=== PATIENT | female | born 1950 | race Caucasian/White ===

== ENCOUNTER 2016-04-10 15:39 | Emergency (ER) | payer OTHER ==
--- NOTE | 2016-04-10 18:29 | RAD ---
INDICATION: Heel pain. No injury. COMPARISON: None TECHNIQUE: AP, lateral, and oblique views were obtained. FINDINGS: Is no acute bony change. There is osteopenia. There are hammertoe deformities. There are prominent heel spurs. There is diffuse soft tissue swelling.. IMPRESSION: PROMINENT HEEL SPURS. DIFFUSE SOFT TISSUE SWELLING.
--- NOTE | 2016-05-25 10:13 | UC ---
Prosper Beckett Matthew, scribed for Marla Balderas MD on 04/10/16 at 1734 . Lower Extremity/Ankle HPI - HPI Summary HPI Summary: A 65 y/o female presents to [facility] with right heel pain since a couple of weeks ago. No open sore is noted. Associated symptoms include pain with touch and restless legs at night. The patient has a Hx of diabetes. - History of Current Complaint Chief Complaint: UCLowerExtremity Stated Complaint: WOUND ON FOOT Time Seen by Provider: 04/10/16 17:19 Hx Obtained From: Patient ?: No Onset/Duration: Lasting Weeks, Still Present Severity Initially: Moderate Severity Currently: Moderate Pain Intensity: 1 Pain Scale Used: 0-10 Numeric Aggravating Factor(s): Standing, Ambulation Able to Bear Weight: Yes - Allergies/Home Medications Allergies/Adverse Reactions: Allergies Allergy/AdvReac Type Severity Reaction Status Date / Time No Known Allergies Allergy Verified 02/06/12 13:18 Home Medications: Home Medications Insulin Glargine [Lantus] 10 unit SC DAILY 04/10/16 [History Confirmed 05/19/16] buPROPion TAB* [Wellbutrin TAB*] 75 mg PO DAILY 04/10/16 [History Confirmed ] traZODone TAB* [Desyrel TAB*] 100 mg PO BEDTIME PRN 04/10/16 [History Confirmed 05/19/16] PMH/Surg Hx/FS Hx/Imm Hx Endocrine History Of: Reports: Diabetes Cardiovascular History Of: Reports: Hypertension Cancer History Of: Denies: Breast Cancer - Surgical History Surgical History: Yes Surgery Procedure, Year, and Place: hysterectomy - Family History Family History: No FHx of Breast CA - Social History Alcohol Use: Rare Substance Use Type: None Smoking Status (MU): Former Smoker Review of Systems Constitutional: Negative Skin: Negative Eyes: Negative ENT: Negative Respiratory: Negative Cardiovascular: Negative Gastrointestinal: Negative Genitourinary: Negative Motor: Negative Neurovascular: Negative Musculoskeletal: Myalgia - RT heel pain, Other: - restless legs at night Neurological: Negative Psychological: Negative All Other Systems Reviewed And Are Negative: Yes Physical Exam Triage Information Reviewed: Yes Appearance: Obese Vital Signs: Initial Vital Signs Temp 98.2 F 04/10/16 16:01 Pulse 63 04/10/16 16:01 Resp 18 04/10/16 16:01 Pulse Ox 98 04/10/16 16:01 Vital Signs Reviewed: Yes Eye Exam: Normal ENT Exam: Normal Neck exam: Normal Neck: Positive: No Lymphadenopathy Respiratory: Positive: Chest non-tender, Lungs clear, Normal breath sounds, No respiratory distress, No accessory muscle use Cardiovascular: Positive: RRR, No Murmur, Pulses Normal - Sitting up, Brisk Capillary Refill Abdominal Exam: Normal Musculoskeletal Exam: Other - R post heel + tender post heel, extending superiorly to distal achilles area. No sores noted to either R or L foot. +++ pitting edema BLE. No jeremi alm's or appreciable venous cord (limited 2/2 edema) + BLE venous insufficiency changes, flaky skin, hemosiderosis. Edema extends to BL feet. CR < 2 sec x 10 toes. + onchomycosis. + sensation to LT "tickle" BLE base of feet. Musculoskeletal: Positive: Edema @ Neurological Exam: Normal - non-focal, grossly intact Psychological Exam: Normal Skin Exam: Other - see above ext's Diagnostics - Radiology RT Foot XR Xray Interpretation: Positive (See Comments) - IMPRESSION: PROMINENT HEEL SPURS. DIFFUSE SOFT TISSUE SWELLING. Radiology Interpretation Completed By: Radiologist Lower Extremity Course/Dx - Course Course Of Treatment: Ms. Howell has upcoming appt's with both Dr. Pritchett ( patent solicitor) and Ms. Williams Ware NP (Dr. KYM Wade) approx 24 April. She reports that insurance has not covered compression for legs. Wearing diabetic inserts in both sneakers, but sneakers themselves do not seem to fit well (loose). Reviewed the importance of f/u with Professor Of Geology bill, as she will benefit from improved footwear. Notes some RLS at night, both legs, over the last several weeks. Suspect this is in part related to BLE edema, progressively worse. Very important that she f/u with pcp, ideally this week. No current sob / cp / palpitations. No GI sx. She is aware to go to to the ED for any worse or new symptoms. Advised to elevate legs as much as possible. She is using a walker. Nevertheless, minimal weight bear until ok by patent solicitor. Questions answered to the best of my ability. BS here 100mg / dl. - Differential Dx/Diagnosis Provider Diagnoses: heel spur Discharge - Discharge Plan Condition: Stable Disposition: HOME Patient Education Materials: Lymphedema (ED), Heel Spur (ED), Venous Insufficiency (GEN) Referrals: Williams Ware NP [Primary Care Provider] - Additional Instructions: You have a heel spur on your Right foot. It is very important that you follow up with your Professor Of Geology, Dr. Quintero, as soon as possible. Call for appointment next week. Check with your patent solicitor about improved footwear. Follow up with your primary care provider, Dr. KYM Wade (or Ms. Ware), next week if possible. Consider referral to [facility]. ELEVATE your legs as much as possible. You will benefit from compression devices for your legs, check with your doctor. Moisturize your legs. Go to the ED for any worse or new problems in the meantime. Keep a close eye on your blood glusose levels. The documentation as recorded by the Prosper gross Matthew accurately reflects the service I personally performed and the decisions made by me, Marla Balderas MD.
== END 2016-04-10 19:19 | disposition home or self-care (01) ==
LOC: UCEAST 15:39
DX: M77.31 Calcaneal spur, right foot (principal); E11.9 Type 2 diabetes mellitus without complications; Z79.4 Long term (current) use of insulin; I10 Essential (primary) hypertension; Z87.891 Personal history of nicotine dependence
CPT/HCPCS: 99211; G0463

== ENCOUNTER 2017-03-02 10:39 | Inpatient (IN) | payer MEDICAID, MEDICARE ==
[2017-03-02] MEDS ORDERED: Furosemide IV* 10 MG/ML VIAL (40 MG) IV SLOW PU ONE (11:15)
[2017-03-02] MEDS ORDERED: Nitroglycerin TAB 0.4 MG* 0.4 MG TAB ONE (11:51)
[2017-03-02 11:58] LABS: ABS Basophils 0.1 10^3/ul (0-0.2); ABS Eosinophils 0.1 10^3/ul (0-0.6); ABS Lymphocytes 1.2 10^3/ul (1.0-4.8); ABS Monocytes 0.6 10^3/ul (0-0.8); ABS Neutrophils 7.9 10^3/ul (1.5-7.7); ABS Nucleated RBC 0 10^3/ul; Eosinophil % 0.5 % (0-6); Hematocrit 28 % (35-47); Mean Corpuscular HGB Conc 33 g/dl (31-36); Mean Corpuscular Hemoglobin 27 pg (27-31); Mean Corpuscular Volume 81 fL (80-97); Mean Platelet Volume 8 um3 (7.4-10.4); Nucleated Red Blood Cells % 0; Platelet Count 200 10^3/ul (150-450); Red Blood Count 3.38 10^6/ul (4.0-5.4); Red Cell Distribution Width 17 % (10.5-15); White Blood Count 9.8 10^3/ul (3.5-10.8)
[2017-03-02] MEDS ORDERED: Nitroglycerin TAB 0.4 MG* 0.4 MG TAB SL ONE (12:00)
[2017-03-02] MEDS ORDERED: Nitroglycerin 2% OINT* 1 GM PAK TOPICAL ONE (12:01)
[2017-03-02 12:05] LABS: INR 1.16 (0.77-1.02)
[2017-03-02 12:14] LABS: EGFR Non-African American 78.8 (>60)
--- NOTE | 2017-03-02 12:14 | RAD ---
Indication: Shortness of breath. Comparison: August 10, 2013 CT abdomen. July 29, 2006 chest radiograph. Technique: Upright AP 1151 hours Report: Large body habitus limits image quality. Mild elevation of the RIGHT hemidiaphragm without significant change. Mild prominence of interstitial markings. Grossly clear pleural spaces. Cardiomegaly. Prominent ill-defined central pulmonary vasculature with cephalization. Prominent superior RIGHT mediastinal margin likely representing venous congestion. IMPRESSION: The constellation of findings is most consistent with pulmonary vascular congestion and interstitial edema.
--- NOTE | 2017-03-02 13:32 | ED ---
Gunner Beckett Angela, scribed for Omar Olguin MD on 03/02/17 at 1054 . Shortness of Breath - HPI Summary HPI Summary: This pt is a 66 y/o female, accompanied by her friend, presenting to [facility] c/o SOB x3 day. Friend states she was running errands with pt when she noticed pt was short of breath and brought her to the ED. Pt reports bilateral LE swelling , headache. Pt notes her SOB is alleviated with sitting up and exacerbated with lying down. Denies fever, chills, cough. Pt reports she has been eating more solid intake than usual. PMHx: IDDM. No known pulmonary issues. Pt has not taken her medications today. Pt is currently on diuretics. Pt is on CPAP at home. Her BP usually runs in the 130's. EF is 78% during stress and 69% during rest as of 05/21/16. - History of Current Complaint Chief Complaint: EDShortnessOfBreath Hx Obtained From: Patient Onset/Duration: Lasting Days, Still Present Current Severity: Moderate Dyspnea At: Rest Aggrevating Factors: Recumbent Position Alleviating Factors: Other - sitting up Associated Signs & Symptoms: Edema - Allergy/Home Medications Allergies/Adverse Reactions: Allergies Allergy/AdvReac Type Severity Reaction Status Date / Time No Known Allergies Allergy Verified 02/06/12 13:18 PMH/Surg Hx/FS Hx/Imm Hx Endocrine/Hematology History: Reports: Hx Diabetes Cardiovascular History: Reports: Hx Angina, Hx Hypertension Denies: Hx Coronary Artery Disease, Hx Hypercholesterolemia, Hx Myocardial Infarction Musculoskeletal History: Denies: Hx Osteoporosis - Cancer History Hx Chemotherapy: No Hx Radiation Therapy: No - Surgical History Surgery Procedure, Year, and Place: hysterectomy Infectious Disease History: No Infectious Disease History: Denies: Traveled Outside the [place] in Last 30 Days - Family History Known Family History: Positive: Diabetes - grandparents, Other - Brother due to brain tumor. - Social History Alcohol Use: Rare Substance Use Type: Reports: None Smoking Status (MU): Former Smoker Review of Systems Negative: Fever, Chills Positive: Shortness Of Breath. Negative: Cough Positive: Edema - in LE Positive: Headache All Other Systems Reviewed And Are Negative: Yes Physical Exam - Summary Physical Exam Summary: Appearance: Morbidly obese. Tachypneic but able to speak in short sentences. Skin: Warm Eyes: Normal ENT: Normal. Normal mucous membranes. Neck: Supple, nontender Respiratory: Diminished breath sounds bilaterally. No crackles. Chest is normal. Cardiovascular: Normal sinus rhythm. Abdomen: Soft, nontender Bowel: Present Musculoskeletal: Strength/ROM Intact. Lower extremity severe edema with chronic skin changes. No tenderness to palpation. Neurological: Normal, A&Ox3. Answering questions appropriately. Psychiatric: Normal Triage Information Reviewed: Yes Vital Signs On Initial Exam: Initial Vitals Temp Pulse Resp BP Pulse Ox 98.7 F 81 28 190/78 77 03/02/17 10:41 03/02/17 10:41 03/02/17 10:41 03/02/17 10:41 03/02/17 10:41 Vital Signs Reviewed: Yes Diagnostics - Vital Signs Vital Signs Temp Pulse Resp BP Pulse Ox 03/02/17 10:41 98.7 F 81 28 190/78 77 - Laboratory Lab Results: Lab Results 03/02/17 03/02/17 03/02/17 Range/Units 11:48 11:48 11:48 WBC 9.8 (3.5-10.8) 10^3/ul RBC 3.38 L (4.0-5.4) 10^6/ul Hgb 9.0 L (12.0-16.0) g/dl Hct 28 L (35-47) % MCV 81 (80-97) fL MCH 27 (27-31) pg MCHC 33 (31-36) g/dl RDW 17 H (10.5-15) % Plt Count 200 (150-450) 10^3/ul MPV 8 (7.4-10.4) um3 Neut % (Auto) 80.3 (38-83) % Lymph % (Auto) 12.0 L (25-47) % Pleasants % (Auto) 6.6 (1-9) % Eos % (Auto) 0.5 (0-6) % Baso % (Auto) 0.6 (0-2) % Absolute Neuts (auto) 7.9 H (1.5-7.7) 10^3/ul Absolute Lymphs (auto) 1.2 (1.0-4.8) 10^3/ul Absolute Monos (auto) 0.6 (0-0.8) 10^3/ul Absolute Eos (auto) 0.1 (0-0.6) 10^3/ul Absolute Basos (auto) 0.1 (0-0.2) 10^3/ul Absolute Nucleated RBC 0 10^3/ul Nucleated RBC % 0 INR (Anticoag Therapy) (0.77-1.02) Sodium 132 L (133-145) mmol/L Potassium 3.6 (3.5-5.0) mmol/L Chloride 99 L (101-111) mmol/L Carbon Dioxide 25 (22-32) mmol/L Anion Gap 8 (2-11) mmol/L BUN 17 (6-24) mg/dL Creatinine 0.74 (0.51-0.95) mg/dL Est GFR ( Amer) 101.3 (>60) Est GFR (Non-Af Amer) 78.8 (>60) BUN/Creatinine Ratio 23.0 H (8-20) Glucose 133 H (70-100) mg/dL Lactic Acid (0.5-2.0) mmol/L Calcium 8.9 (8.6-10.3) mg/dL Total Bilirubin 0.80 (0.2-1.0) mg/dL AST 17 (13-39) U/L ALT 21 (7-52) U/L Alkaline Phosphatase 68 (34-104) U/L Troponin I 0.01 (<0.04) ng/mL B-Natriuretic Peptide 324 H ( - 100) pg/mL Total Protein 8.5 (6.4-8.9) g/dL Albumin 3.3 (3.2-5.2) g/dL Globulin 5.2 H (2-4) g/dL Albumin/Globulin Ratio 0.6 L (1-3) 03/02/17 03/02/17 Range/Units 11:48 11:48 WBC (3.5-10.8) 10^3/ul RBC (4.0-5.4) 10^6/ul Hgb (12.0-16.0) g/dl Hct (35-47) % MCV (80-97) fL MCH (27-31) pg MCHC (31-36) g/dl RDW (10.5-15) % Plt Count (150-450) 10^3/ul MPV (7.4-10.4) um3 Neut % (Auto) (38-83) % Lymph % (Auto) (25-47) % Pleasants % (Auto) (1-9) % Eos % (Auto) (0-6) % Baso % (Auto) (0-2) % Absolute Neuts (auto) (1.5-7.7) 10^3/ul Absolute Lymphs (auto) (1.0-4.8) 10^3/ul Absolute Monos (auto) (0-0.8) 10^3/ul Absolute Eos (auto) (0-0.6) 10^3/ul Absolute Basos (auto) (0-0.2) 10^3/ul Absolute Nucleated RBC 10^3/ul Nucleated RBC % INR (Anticoag Therapy) 1.16 H (0.77-1.02) Sodium (133-145) mmol/L Potassium (3.5-5.0) mmol/L Chloride (101-111) mmol/L Carbon Dioxide (22-32) mmol/L Anion Gap (2-11) mmol/L BUN (6-24) mg/dL Creatinine (0.51-0.95) mg/dL Est GFR ( Amer) (>60) Est GFR (Non-Af Amer) (>60) BUN/Creatinine Ratio (8-20) Glucose (70-100) mg/dL Lactic Acid 1.2 (0.5-2.0) mmol/L Calcium (8.6-10.3) mg/dL Total Bilirubin (0.2-1.0) mg/dL AST (13-39) U/L ALT (7-52) U/L Alkaline Phosphatase (34-104) U/L Troponin I (<0.04) ng/mL B-Natriuretic Peptide ( - 100) pg/mL Total Protein (6.4-8.9) g/dL Albumin (3.2-5.2) g/dL Globulin (2-4) g/dL Albumin/Globulin Ratio (1-3) Result Diagrams: 03/02/17 11:48 03/02/17 11:48 Lab Statement: Any lab studies that have been ordered have been reviewed, and results considered in the medical decision making process. - Radiology Chest XR Xray Interpretation: Positive (See Comments) - IMPRESSION: The constellation of findings is most consistent with pulmonary vascular congestion and interstitial edema. Dr. Olguin has reviewed this radiology report. Radiology Interpretation Completed By: Radiologist Course/Dx - Course Course Of Treatment: Pt given nitroglycerin and diuretic with improvement in respiratory symptoms. History and physical consistent with CHF exacerbation. Pt is breathing comfortably currently. I discussed pt care with Dr. Tuttle, hospitalist, who has agreed to admit the pt. Pt will be admitted for further dieresis and re-evaluation. Pt agrees and understands admission plan. - Diagnoses Provider Diagnoses: CHF exacerbation - Physician Notifications Discussed Care of Patient With: Craig Tuttle Time Discussed With Above Provider: 13:22 Instructed by Provider To: Other - I discussed pt care with Dr. Tuttle, hospitalist, who has agreed to admit the pt. Discharge - Discharge Plan Condition: Stable Disposition: ADMITTED TO [facility] Referrals: Cr Wade MD [Primary Care Provider] - The documentation as recorded by the Gunner gross Angela accurately reflects the service I personally performed and the decisions made by , Omar Olguin MD.
[2017-03-02] MEDS ORDERED: Ondansetron INJ* 2 MG/ML VIAL IV PRN (14:49)
[2017-03-02] MEDS ORDERED: Dextrose 50% Syringe 50 ML* 25 GM/50 ML SYRINGE IV PUSH PRN (15:00)
[2017-03-02] MEDS ORDERED: traZODone TAB* 100 MG PO PRN (15:31)
[2017-03-02 16:02] LABS: Urine Appearance Clear; Urine Blood 1+ (Negative); Urine Color Straw; Urine Ketones Negative (Negative); Urine Protein 1+(30 mg/dL) (Negative); Urine Specific Gravity 1.006 (1.010-1.030); Urine Urobilinogen Negative (Negative)
[2017-03-02] MEDS: Insulin LISPRO* 1 UNITS UNIT SUBCUT SCH (17:24)
[2017-03-02] MEDS: Nystatin SUSPENSION* 100000 UNITS/ML 5 ML UDC PO SCH ×2 (17:24→21:14)
[2017-03-02] MEDS ORDERED: Magnesium Sulfate 2 GM IV* 2 GM/50 ML BAG IVPB ONE (18:00)
--- NOTE | 2017-03-02 21:07 | HP ---
CC: Cr Wade MD * MEDICINE HISTORY AND PHYSICAL: DATE OF ADMISSION: 03/02/17 PROVIDER: Tayler Aguirre NP ATTENDING PHYSICIAN: Dagmar Ayala DO * (dictated by Tayler Aguirre NP) PRIMARY CARE PROVIDER: Dr. Cr Wade. CHIEF COMPLAINT: "I cannot breathe." HISTORY OF PRESENT ILLNESS: Ms. Howell is a 66-year-old female who presented to the ER today with complaint of difficulty breathing. The patient is not a strong historian, but states that her shortness of breath started several days ago. She notes that she has been having more difficulty breathing at both rest and especially with exertion. It takes her quite a bit of time to recover after walks or moves around. She reports that she has been having difficulty sleeping at night and often has to sit up and sit on the the side of her bed to catch her breath. She denies any cough or recent cold or flu-like symptoms. She denies fever or chills, chest pain, back pain, neck pain, or palpitations. She denies abdominal pain, nausea, vomiting, diarrhea, or dysuria. She denies any weakness. She denies any known history of heart failure. Today, one of her friends came to pick her up to take her to the store and was concerned for her respiratory status and convinced her to come to the ER. Here in the ER, the patient received 40 mg of IV Lasix and reports improvement in her breathing. When asked about her diet, she states that she typically does adhere to a low salt and low sugar diet for her diabetes and heart. However, this past week, when it was cold, she was ordering food and states that she ate pizza and sandwiches from [employer]. She also had a salad where she was adding rooney bits to her salad. These dietary indiscretions correspond with the timeline of the patient's dyspneic symptoms. Of note, Ms. Howell also reports that her mouth started to hurt after eating the foods from takeout. She states that she has thrush in her mouth, which she has gotten before and thinks this is secondary to eating gluten which she normally does not eat much of. PAST MEDICAL HISTORY: Includes: 1. Type 2 diabetes, on insulin. 2. Hypertension. 3. Hypercholesterolemia. 4. Obstructive sleep apnea, use of CPAP. 5. Depression. 6. Insomnia. 7. Chronic lymphedema with right posterior calf nonhealing wound. 8. Chronic fatigue. 9. Morbid obesity, BMI 51.7. 10. History of endometriosis status post hysterectomy in 2009. HOME MEDICATIONS: 1. NPH insulin 35 units subcu b.i.d. 2. Diovan 320/25 one tab daily. 3. Metoprolol succinate XL 25 mg daily. 4. Trazodone 100 mg at bedtime p.r.n. 5. Naproxen 500 mg q. 12 hours p.r.n. 6. Bupropion SR 100 mg daily. 7. Metformin 1000 mg b.i.d. 8. Amlodipine 10 mg daily. 9. Pravastatin 10 mg daily. ALLERGIES: The patient reports AG INHIBITOR allergy, which causes cough and GLUTEN intolerance. FAMILY HISTORY: She reports diabetes in her paternal grandfather and maternal grandmother. Mother at age 30 from brain tumor. She is not aware of her father's medical history. SOCIAL HISTORY: She is a former smoker. She had a pack a day smoking habit for approximately 3 to 4 years. She quit in 2001. She reports rare alcohol use and denies any illicit drug use. She is single and lives alone by herself at [facility] ([facility] She does receive nursing services. Her friend, Abdiaziz Bergeron, is her surrogate decision maker and health-care proxy, in an emergency he can be reached at [phone]. REVIEW OF SYSTEMS: A 14-point review of systems was completed. All pertinent positives and negatives are included in the HPI. PHYSICAL EXAMINATION GENERAL: This is a middle-aged female who is sitting up in the ED stretcher. She is able to talk in full sentences. She is wearing oxygen, but is in no acute distress. VITAL SIGNS: Most recent vital signs, temperature 98.0, heart rate 65, respiratory rate 22, blood pressure 160/57, O2 saturation is 92% on 2 L nasal cannula. HEENT: Head is atraumatic, normocephalic. Face is symmetrical. Pupils are equal, round, reactive to light and accommodation. Extraocular movements are intact. Oral mucosa is somewhat dry. There are a few white patches within the oropharynx consistent with thrush. NECK: Supple, nontender. No JVD noted. No lymphadenopathy appreciated. LUNGS: Diminished lung sounds likely secondary to body habitus. There are scant crackles in the posterior bases. CARDIAC: S1, S2 heart sounds, regular rate and rhythm. No murmurs, rubs, or gallops. There is bilateral edema to the lower extremities that is chronic with chronic venostasis changes. ABDOMEN: Soft, nontender, nondistended. Bowel sounds normoactive. MUSCULOSKELETAL: There is no clubbing or cyanosis. NEURO: She is alert and oriented. She moves all extremities. Speech is clear. No focal deficits noted. SKIN: Limited assessment. There is a right posterior calf wound approximately 2 cm that is dry, nontender. There are chronic skin changes to the bilateral lower extremities. PSYCH: Affect is appropriate. LABORATORY DATA/DIAGNOSTIC STUDIES: CBC: WBC 9.8, hemoglobin 9.0, hematocrit 28, platelet count 200. CMP: Sodium 132, potassium 3.6, chloride 99, carbon dioxide 25, BUN 17, creatinine 0.74, glucose 133. Lactic acid 1.2. Calcium 8.9. Magnesium 1.7. Total bilirubin 0.8, AST 17, ALT 21, alk phos 68. Troponin 0.01. BNP 324. Albumin 3.3. EKG shows sinus rhythm with a rate of 63. No acute ST or T wave changes noted. QTC is 493. Chest x-ray, impression: Constellation of findings is most consistent with pulmonary vascular congestion, interstitial edema. I did personally review the chest x-ray, no evidence of infiltrate noted upon review. Old medical records were reviewed. ASSESSMENT AND PLAN: This is a 66-year-old female with a past medical history significant for type 2 diabetes, hypertension, hypercholesterolemia, obstructive sleep apnea, morbid obesity, chronic lymphedema who presents today with shortness of breath that appears to be secondary to congestive heart failure exacerbation. She will be admitted under observation to the telemetry floor. Plan is as follows: 1. Shortness of breath, suspect congestive heart failure exacerbation. The patient has no documented history of congestive heart failure though I suspect that she has acute exacerbation of what is likely diastolic heart failure. Echocardiogram is pending. She has responded well to furosemide. I will hold off on further furosemide this evening, but plan to give her another dose of IV furosemide tomorrow. We will monitor I's and O's and daily weights. She was given a Johnson catheter in the ER, which we will discontinue tomorrow if the patient is able to ambulate and get to a bedside commode. We will continue to trend her weights. Continue metoprolol. We will continue to trend her troponins , which currently are unremarkable. We will wean oxygen if possible. Continue to monitor on telemetry. 2. Hyponatremia. Suspect this is dilutional secondary to congestive heart failure exacerbation. Continue to trend. 3. Anemia, suspect it may be in part dilutional to fluid overload. The patient denies any tarry stools or signs or symptoms of bleeding. We will continue to monitor and follow her CBC. Check a stool occult. The patient is not on any blood thinner currently, but does take naproxen. 4. Oral thrush. I have ordered nystatin swish and swallow. 5. History of nonhealing wound. I have ordered a wound care consult. It currently is open to air and does not appear to have any acute needs, but I would appreciate wound care input. 6. Chronic lymphedema. The patient would likely benefit from her Unna boots that she has at home, but they were not currently available. We will consider Ag wraps to the lower extremities as needed. The patient would prefer Unna boots, which I have asked her to have a friend bring in for her. 7. Type 2 diabetes. Plan to check an A1c. The patient states at home her control is relatively good and her morning glucoses tend to run around the 110s. We will continue her on her home NPH insulin, but we will hold her metformin. I have added lispro sliding scale insulin as well to cover her for any elevated sugars. 8. Hypertension. Continue home metoprolol and amlodipine. We will hold her Diovan as we are giving her IV furosemide. Currently, the patient's blood pressure seem to be relatively well controlled. We could certainly add the valsartan aspect of the Diovan, if necessary. 9. Obstructive sleep apnea. Offered hospital CPAP, but patient may use home device if made available. 10. Hypercholesterolemia. Continue statin. 11. History of depression. Continue bupropion. 12. History of insomnia. Continue trazodone. 13. FEN. The patient is ordered on a consistent carbohydrate, gluten-free diet. 14. DVT prophylaxis. The patient is ordered subcu heparin. 15. Code status. The patient is a full code. 16. Disposition. To home when medically stable. TIME SPENT: Time spent on this admission was approximately 60 minutes, more than half that time was spent [id number] with the patient obtaining history and physical, performing the physical examination, and reviewing the plan of care. Plan of care was also reviewed with my attending, Dr. Ayala, who is in agreement. TAYLER AGUIRRE NP [id number]/[facility] #: [id number] AMOL
[2017-03-02] MEDS: Insulin ISOPH/REG 70/30 (*) 1 UNITS UNIT SUBCUT SCH (21:10)
[2017-03-02] MEDS: Heparin VIAL(*) 5000 UNITS/ML VIAL (FIVE THOUSAND) SUBCUT SCH (21:12)
[2017-03-03 05:40] LABS: ABS Basophils 0.1 10^3/ul (0-0.2); ABS Eosinophils 0.2 10^3/ul (0-0.6); ABS Lymphocytes 1.6 10^3/ul (1.0-4.8); ABS Monocytes 0.6 10^3/ul (0-0.8); ABS Neutrophils 5.2 10^3/ul (1.5-7.7); ABS Nucleated RBC 0 10^3/ul; Eosinophil % 2.6 % (0-6); Hematocrit 28 % (35-47); Hemoglobin 9.2 g/dl (12.0-16.0); Lymphocyte % 20.5 % (25-47); Mean Corpuscular HGB Conc 33 g/dl (31-36); Mean Corpuscular Hemoglobin 27 pg (27-31); Mean Corpuscular Volume 82 fL (80-97); Mean Platelet Volume 8 um3 (7.4-10.4); Nucleated Red Blood Cells % 0.1; Platelet Count 200 10^3/ul (150-450); Red Blood Count 3.44 10^6/ul (4.0-5.4); Red Cell Distribution Width 17 % (10.5-15); White Blood Count 7.7 10^3/ul (3.5-10.8)
[2017-03-03 05:48] LABS: EGFR Non-African American 82.6 (>60)
[2017-03-03] MEDS: Heparin VIAL(*) 5000 UNITS/ML VIAL (FIVE THOUSAND) SUBCUT SCH ×3 (06:21→22:18)
[2017-03-03] MEDS: Insulin LISPRO* 1 UNITS UNIT SUBCUT SCH ×3 (07:55→16:15)
[2017-03-03] MEDS: Insulin ISOPH/REG 70/30 (*) 1 UNITS UNIT SUBCUT SCH ×2 (08:15→22:18)
[2017-03-03] MEDS: amLODIPine TAB* 5 MG PO SCH (08:15)
[2017-03-03] MEDS: Metoprolol Succinate XL TAB* 25 MG PO SCH (08:16)
[2017-03-03] MEDS: CMCS: Pravastatin (NF) 20 MG TAB PO SCH (08:16)
[2017-03-03] MEDS: Nystatin SUSPENSION* 100000 UNITS/ML 5 ML UDC PO SCH ×4 (08:16→22:18)
[2017-03-03] MEDS ORDERED: Furosemide IV* 10 MG/ML VIAL (40 MG) IV SLOW PU ONE (09:00)
[2017-03-03] MEDS: buPROPion SR TAB.SR* 100 MG PO SCH (09:10)
[2017-03-03] MEDS ORDERED: Potassium Chlor TAB* 10 MEQ TAB.ER PO ONE (09:45)
[2017-03-03] MEDS: Acetaminophen TAB* 325 MG PO PRN (11:56)
[2017-03-03] MEDS ORDERED: Perflutren Lipid Microsphere* 3 ML VIAL ONE ×2 (13:23→14:34)
--- NOTE | 2017-03-03 18:30 | ECHO ---
Patient: SAEID SORIANO [facility] Rec#: [id number] : 1950 Date: 03/03/2017 Age: 66y Height: 170 cm / 66.9 in Weight: 149.7 kg / 329.9 lbs Sex: F BSA: 2.5 Room#: [facility] Admit Date#: 03/02/2017 Type: Inpatient Referring: Craig Tuttle MD Reading: Lalit Silver MD Intermediate Project Manager: Vita Hooper RN RDCS CC: Cr Wade MD Transthoracic Echocardiogram Indication: CHF BP: 152/58 HR: 61 Rhythm: NSR Findings History: HTN, HLD, DM, angina, morbid obesity, former smoker, DON Technical Comments: The study is technically limited due to poor apical windows. The study is technically limited due to patient body habitus. The study is technically limited due to the patient's smoking history. Completed at 1520. Left Ventricle: The left ventricular chamber size is normal. Mild to moderate concentric left ventricular hypertrophy is observed. Global left ventricular wall motion and contractility are within normal limits. The left ventricle appears hyperdynamic. The estimated ejection fraction is 60-65%. There is septal flattening of the interventricular septum consistent with right ventricular volume or pressure overload. Abnormal left ventricular diastolic function is observed. The left ventricular diastolic filling pattern is consistent with pseudonormalization. Left Atrium: The left atrium is mildly dilated. Right Ventricle: The right ventricle is slightly dilated. The right ventricular global systolic function is mildly reduced. Right Atrium: The right atrium is mildly dilated. Aortic Valve: The aortic valve leaflets are mildly thickened. There is moderate thickening of the non coronary cusp. There is no evidence of aortic regurgitation. There is no evidence of aortic stenosis. Mitral Valve: There is posterior mitral annular calcification. The mitral valve leaflets are mildly thickened. The posterior leaflet of the mitral valve is thickened. There is a trace of mitral regurgitation. There is borderline mitral stenosis. Tricuspid Valve: The tricuspid valve leaflets are normal. There is trace to mild tricuspid regurgitation. Unable to estimate the right ventricular systolic pressure. There is no tricuspid stenosis. Pulmonic Valve: The pulmonic valve appears normal. There is a trace pulmonic regurgitation. There is no pulmonic stenosis. Pericardium: There is no significant pericardial effusion. A pericardial fat pad is visualized. Aorta: There is no dilatation of the ascending aorta. The aortic arch is not well visualized. There is no dilation of the aortic root. Pulmonary Artery: The main pulmonary artery appears normal. Venous: The venous system is not well visualized. The inferior vena cava is not visualized. Contrast: Definity was used to optimize study. A total of 3 ml of diluted Definity was given IV. Summary: There was not any prior study for comparison. Conclusions The study is technically suboptimal due to patient body habitus. Mild to moderate concentric left ventricular hypertrophy is observed. The left ventricle appears hyperdynamic. The estimated ejection fraction is 60-65%. There is septal flattening of the interventricular septum consistent with right ventricular volume or pressure overload. The left ventricular diastolic filling pattern is consistent with pseudonormalization. The left atrium is mildly dilated. The right ventricle is slightly dilated. The right ventricular global systolic function is mildly reduced. The mitral valve leaflets are mildly thickened. There is a trace of mitral regurgitation. There is borderline mitral stenosis. There is trace to mild tricuspid regurgitation. Unable to estimate the right ventricular systolic pressure. Measurements Name Value Normal Range RVIDd (AP) 2D 3 cm (0.9 - 2.6) RVDdMajor (2D) 3.5 cm (2.2 - 4.4) RAd ISD 4CH 5.3 cm (3.4 - 4.9) RA (A4C)W 4.9 cm (2.9 - 4.6) IVSd (2D) 1.3 cm (0.6 - 1) LVPWd (2D) 1.3 cm (0.6 - 1) LVIDd (2D) 5 cm (3.6 - 5.4) LVIDs (2D) 3.2 cm - LV FS (2D) 36 % (25 - 45) Aortic Annulus 2.1 cm (1.4 - 2.6) Ao root diameter (2D) 2.9 cm (2.1 - 3.5) Ascending Ao 3.4 cm (2.1 - 3.4) LA dimension (AP) 2D 4.9 cm (2.3 - 3.8) LAd ISD 4CH 5.7 cm (2.9 - 5.3) LA ISD 4CH W 4.9 cm (2.5 - 4.5) Name Value Normal Range LA ESV SP 4CH (A/L) 101 ml - LA ESV SP 2CH (A/L) 62 ml - LA ESV BP (A/L) 96 ml - LA ESV BP (A/L) index 35 ml/m2 - LA ESV SP 4CH (MOD) 95 ml - LA ESV SP 2CH (MOD) 58 ml - Name Value Normal Range MV E-wave Vmax 1.2 m/sec - MV deceleration time 251 msec - MV A-wave Vmax 0.77 m/sec - MV E:A ratio 1.5 ratio - LV septal e' Vmax 0.06 m/sec - LV lateral e' Vmax 0.08 m/sec - LV E:e' septal ratio 20 ratio - LV E:e' lateral ratio 15 ratio - Name Value Normal Range AV Vmax 1.8 m/sec - AV VTI 46 cm - AV peak gradient 13 mmHg - AV mean gradient 7.2 mmHg - LVOT Vmax 1.5 m/sec - LVOT VTI 32.1 cm - LVOT peak gradient 8.7 mmHg - LVOT mean gradient 4.6 mmHg - Name Value Normal Range MV Vmax 1.4 m/sec - MV VTI 49.1 cm - MV peak gradient 8.3 mmHg - MV mean gradient 2.3 mmHg - MV PHT 95.5 msec - MVA (PHT) 2.3 cm2 - Name Value Normal Range PV Vmax 0.97 m/sec -
--- NOTE | 2017-03-04 00:22 | PN ---
Subjective Date of Service: 03/03/17 Interval History: Denies chest pain. C/o mild shortness of breath when ambulating, Denies abd pain. denies N/V/D. Family History: Unchanged from Admission Social History: Unchanged from Admission Past Medical History: Unchanged from Admission Objective Active Medications: Acetaminophen (Tylenol Tab*) 650 mg PO Q4H PRN PRN Reason: FEVER/PAIN Last Admin: 03/03/17 11:56 Dose: 650 mg Amlodipine Besylate (Norvasc Tab*) 10 mg PO DAILY [facility] Last Admin: 03/03/17 08:15 Dose: 10 mg Bupropion HCl (Wellbutrin Sr Tab*) 100 mg PO DAILY [facility] Last Admin: 03/03/17 09:10 Dose: 100 mg Dextrose (D50w Syringe 50 Ml*) 12.5 gm IV PUSH .FOR FS < 60 - SS PRN PRN Reason: FS < 60 Heparin Sodium (Porcine) (Heparin Vial(*)) 5,000 units SUBCUT Q8HR [facility] Last Admin: 03/03/17 22:18 Dose: 5,000 units Insulin Human Isoph/Insulin Regular (Humulin 70/30 (*)) 35 units SUBCUT BID [facility] Last Admin: 03/03/17 22:18 Dose: 35 units Insulin Human Lispro (Humalog*) 0 units SUBCUT AC [facility] PRN Reason: Protocol Last Admin: 03/03/17 16:15 Dose: Not Given Metoprolol Succinate (Toprol Xl Tab*) 25 mg PO DAILY [facility] Last Admin: 03/03/17 08:16 Dose: 25 mg Nystatin (Nystatin Suspension*) 500,000 units PO QID [facility] Stop: 03/09/17 15:31 Last Admin: 03/03/17 22:18 Dose: 500,000 units Pravastatin Sodium (Pravachol (Nf)) 10 mg PO DAILY [facility] Last Admin: 03/03/17 08:16 Dose: 10 mg Trazodone HCl (Desyrel Tab*) 100 mg PO BEDTIME PRN PRN Reason: INSOMNIA Vital Signs - 8 hr 03/03/17 03/03/17 20:00 20:03 Temperature 98.0 F Pulse Rate 59 Respiratory 16 16 Rate Blood Pressure 145/64 (mmHg) O2 Sat by Pulse 100 Oximetry Oxygen Devices in Use Now: Nasal Cannula Appearance: alert, awake, sitting in chair apppear comfortable Eyes: No Scleral Icterus Ears/Nose/Mouth/Throat: Clear Oropharnyx, Mucous Membranes Moist Neck: NL Appearance and Movements; NL JVP, Trachea Midline Respiratory: Symmetrical Chest Expansion and Respiratory Effort, - - few scattered rhonchi in the bases Cardiovascular: NL Sounds; No Murmurs; No JVD, RRR, No Edema Abdominal: NL Sounds; No Tenderness; No Distention Extremities: No Clubbing, Cyanosis, - - bilateral lower extremities with brown discoloration. Skin: No Rash or Ulcers, - - bilat lower extremities with brown discoloration Neurological: Alert and Oriented x 3 Nutrition: Taking PO's Result Diagrams: 03/04/17 06:37 03/04/17 06:37 Additional Lab and Data: Lab Results 03/02/17 03/02/17 03/02/17 Range/Units 11:48 11:48 11:48 WBC 9.8 (3.5-10.8) 10^3/ul RBC 3.38 L (4.0-5.4) 10^6/ul Hgb 9.0 L (12.0-16.0) g/dl Hct 28 L (35-47) % MCV 81 (80-97) fL MCH 27 (27-31) pg MCHC 33 (31-36) g/dl RDW 17 H (10.5-15) % Plt Count 200 (150-450) 10^3/ul MPV 8 (7.4-10.4) um3 Neut % (Auto) 80.3 (38-83) % Lymph % (Auto) 12.0 L (25-47) % [place] % (Auto) 6.6 (1-9) % Eos % (Auto) 0.5 (0-6) % Baso % (Auto) 0.6 (0-2) % Absolute Neuts (auto) 7.9 H (1.5-7.7) 10^3/ul Absolute Lymphs (auto) 1.2 (1.0-4.8) 10^3/ul Absolute Monos (auto) 0.6 (0-0.8) 10^3/ul Absolute Eos (auto) 0.1 (0-0.6) 10^3/ul Absolute Basos (auto) 0.1 (0-0.2) 10^3/ul Absolute Nucleated RBC 0 10^3/ul Nucleated RBC % 0 INR (Anticoag Therapy) (0.77-1.02) Sodium 132 L (133-145) mmol/L Potassium 3.6 (3.5-5.0) mmol/L Chloride 99 L (101-111) mmol/L Carbon Dioxide 25 (22-32) mmol/L Anion Gap 8 (2-11) mmol/L BUN 17 (6-24) mg/dL Creatinine 0.74 (0.51-0.95) mg/dL Est GFR ( Amer) 101.3 (>60) Est GFR (Non-Af Amer) 78.8 (>60) BUN/Creatinine Ratio 23.0 H (8-20) Glucose 133 H (70-100) mg/dL Lactic Acid (0.5-2.0) mmol/L Calcium 8.9 (8.6-10.3) mg/dL Total Bilirubin 0.80 (0.2-1.0) mg/dL AST 17 (13-39) U/L ALT 21 (7-52) U/L Alkaline Phosphatase 68 (34-104) U/L Troponin I 0.01 (<0.04) ng/mL B-Natriuretic Peptide 324 H ( - 100) pg/mL Total Protein 8.5 (6.4-8.9) g/dL Albumin 3.3 (3.2-5.2) g/dL Globulin 5.2 H (2-4) g/dL Albumin/Globulin Ratio 0.6 L (1-3) 03/02/17 03/02/17 Range/Units 11:48 11:48 WBC (3.5-10.8) 10^3/ul RBC (4.0-5.4) 10^6/ul Hgb (12.0-16.0) g/dl Hct (35-47) % MCV (80-97) fL MCH (27-31) pg MCHC (31-36) g/dl RDW (10.5-15) % Plt Count (150-450) 10^3/ul MPV (7.4-10.4) um3 Neut % (Auto) (38-83) % Lymph % (Auto) (25-47) % [place] % (Auto) (1-9) % Eos % (Auto) (0-6) % Baso % (Auto) (0-2) % Absolute Neuts (auto) (1.5-7.7) 10^3/ul Absolute Lymphs (auto) (1.0-4.8) 10^3/ul Absolute Monos (auto) (0-0.8) 10^3/ul Absolute Eos (auto) (0-0.6) 10^3/ul Absolute Basos (auto) (0-0.2) 10^3/ul Absolute Nucleated RBC 10^3/ul Nucleated RBC % INR (Anticoag Therapy) 1.16 H (0.77-1.02) Sodium (133-145) mmol/L Potassium (3.5-5.0) mmol/L Chloride (101-111) mmol/L Carbon Dioxide (22-32) mmol/L Anion Gap (2-11) mmol/L BUN (6-24) mg/dL Creatinine (0.51-0.95) mg/dL Est GFR ( Amer) (>60) Est GFR (Non-Af Amer) (>60) BUN/Creatinine Ratio (8-20) Glucose (70-100) mg/dL Lactic Acid 1.2 (0.5-2.0) mmol/L Calcium (8.6-10.3) mg/dL Total Bilirubin (0.2-1.0) mg/dL AST (13-39) U/L ALT (7-52) U/L Alkaline Phosphatase (34-104) U/L Troponin I (<0.04) ng/mL B-Natriuretic Peptide ( - 100) pg/mL Total Protein (6.4-8.9) g/dL Albumin (3.2-5.2) g/dL Globulin (2-4) g/dL Albumin/Globulin Ratio (1-3) Assess/Plan/Problems-Billing Assessment: - Patient Problems (1) CHF (congestive heart failure) Current Visit: Yes Status: Acute Code(s): I50.9 - HEART FAILURE, UNSPECIFIED SNOMED Code(s): 27499129 Comment: continue lasix 40 mg IV x 1 today Will convert to lasix 20 mg po tomorrow and add potassium 20 meq (2) Hypertension Current Visit: Yes Status: Acute Code(s): I10 - ESSENTIAL (PRIMARY) HYPERTENSION SNOMED Code(s): 51368560 Comment: continue home medications-stable (3) Diabetes Current Visit: Yes Status: Acute Code(s): E11.9 - TYPE 2 DIABETES MELLITUS WITHOUT COMPLICATIONS SNOMED Code(s): 87537763 Status and Disposition: Feeling better today, continue to have shortness of breath with exertion
[2017-03-04] MEDS: Heparin VIAL(*) 5000 UNITS/ML VIAL (FIVE THOUSAND) SUBCUT SCH ×3 (04:52→21:07)
[2017-03-04 06:52] LABS: ABS Basophils 0.1 10^3/ul (0-0.2); ABS Eosinophils 0.3 10^3/ul (0-0.6); ABS Monocytes 0.7 10^3/ul (0-0.8); ABS Neutrophils 5.1 10^3/ul (1.5-7.7); ABS Nucleated RBC 0 10^3/ul; Eosinophil % 3.7 % (0-6); Hematocrit 30 % (35-47); Hemoglobin 9.7 g/dl (12.0-16.0); Lymphocyte % 24.1 % (25-47); Mean Corpuscular HGB Conc 33 g/dl (31-36); Mean Corpuscular Hemoglobin 27 pg (27-31); Mean Corpuscular Volume 82 fL (80-97); Mean Platelet Volume 7 um3 (7.4-10.4); Nucleated Red Blood Cells % 0.1; Platelet Count 234 10^3/ul (150-450); Red Blood Count 3.63 10^6/ul (4.0-5.4); Red Cell Distribution Width 17 % (10.5-15); White Blood Count 8.1 10^3/ul (3.5-10.8)
[2017-03-04] MEDS: Insulin LISPRO* 1 UNITS UNIT SUBCUT SCH ×3 (07:59→17:36)
[2017-03-04] MEDS: CMCS: Pravastatin (NF) 20 MG TAB PO SCH (08:10)
[2017-03-04] MEDS: amLODIPine TAB* 5 MG PO SCH (08:11)
[2017-03-04] MEDS: Insulin ISOPH/REG 70/30 (*) 1 UNITS UNIT SUBCUT SCH ×2 (08:12→21:07)
[2017-03-04] MEDS: Nystatin SUSPENSION* 100000 UNITS/ML 5 ML UDC PO SCH ×4 (08:12→21:07)
[2017-03-04] MEDS: buPROPion SR TAB.SR* 100 MG PO SCH (08:12)
[2017-03-04] MEDS: Metoprolol Succinate XL TAB* 25 MG PO SCH (09:34)
[2017-03-04] MEDS ORDERED: Potassium Chlor TAB* 20 MEQ TAB.ER PO ONE (12:00)
[2017-03-04] MEDS ORDERED: Furosemide IV* 10 MG/ML VIAL (40 MG) IV ONE (12:00)
--- NOTE | 2017-03-04 18:19 | PN ---
Subjective Date of Service: 03/04/17 Interval History: Denies chest pain. C/o mild shortness of breath when ambulating, improved from yesterday Denies abd pain. denies N/V/D. Family History: Unchanged from Admission Social History: Unchanged from Admission Past Medical History: Unchanged from Admission Objective Active Medications: Acetaminophen (Tylenol Tab*) 650 mg PO Q4H PRN PRN Reason: FEVER/PAIN Last Admin: 03/03/17 11:56 Dose: 650 mg Amlodipine Besylate (Norvasc Tab*) 10 mg PO DAILY [facility] Last Admin: 03/04/17 08:11 Dose: 10 mg Bupropion HCl (Wellbutrin Sr Tab*) 100 mg PO DAILY [facility] Last Admin: 03/04/17 08:12 Dose: 100 mg Dextrose (D50w Syringe 50 Ml*) 12.5 gm IV PUSH .FOR FS < 60 - SS PRN PRN Reason: FS < 60 Heparin Sodium (Porcine) (Heparin Vial(*)) 5,000 units SUBCUT Q8HR [facility] Last Admin: 03/04/17 13:59 Dose: 5,000 units Insulin Human Isoph/Insulin Regular (Humulin 70/30 (*)) 35 units SUBCUT BID [facility] Last Admin: 03/04/17 08:12 Dose: 35 units Insulin Human Lispro (Humalog*) 0 units SUBCUT AC [facility] PRN Reason: Protocol Last Admin: 03/04/17 17:36 Dose: 2 unit Metoprolol Succinate (Toprol Xl Tab*) 25 mg PO DAILY [facility] Last Admin: 03/04/17 09:34 Dose: 25 mg Nystatin (Nystatin Suspension*) 500,000 units PO QID [facility] Stop: 03/09/17 15:31 Last Admin: 03/04/17 16:22 Dose: 500,000 units Pravastatin Sodium (Pravachol (Nf)) 10 mg PO DAILY [facility] Last Admin: 03/04/17 08:10 Dose: 10 mg Trazodone HCl (Desyrel Tab*) 100 mg PO BEDTIME PRN PRN Reason: INSOMNIA Vital Signs - 8 hr 03/04/17 03/04/17 11:24 15:49 Temperature 98.3 F 97.3 F Pulse Rate 54 62 Respiratory 20 20 Rate Blood Pressure 145/58 144/69 (mmHg) O2 Sat by Pulse 98 99 Oximetry Oxygen Devices in Use Now: Nasal Cannula Appearance: Alert, appears comfortable sitting in the chair. Eyes: No Scleral Icterus Ears/Nose/Mouth/Throat: Clear Oropharnyx, Mucous Membranes Moist Neck: NL Appearance and Movements; NL JVP, Trachea Midline Respiratory: Symmetrical Chest Expansion and Respiratory Effort, Clear to Auscultation Cardiovascular: NL Sounds; No Murmurs; No JVD, No Edema Abdominal: NL Sounds; No Tenderness; No Distention Extremities: No Clubbing, Cyanosis, - - bilat lower extremites with edema and brown discoloration Skin: - - bilat lower leg with brown discoloration Neurological: Alert and Oriented x 3 Nutrition: Taking PO's Result Diagrams: 03/04/17 06:37 03/04/17 06:37 Additional Lab and Data: Lab Results 03/02/17 03/02/17 03/02/17 Range/Units 11:48 11:48 11:48 WBC 9.8 (3.5-10.8) 10^3/ul RBC 3.38 L (4.0-5.4) 10^6/ul Hgb 9.0 L (12.0-16.0) g/dl Hct 28 L (35-47) % MCV 81 (80-97) fL MCH 27 (27-31) pg MCHC 33 (31-36) g/dl RDW 17 H (10.5-15) % Plt Count 200 (150-450) 10^3/ul MPV 8 (7.4-10.4) um3 Neut % (Auto) 80.3 (38-83) % Lymph % (Auto) 12.0 L (25-47) % [place] % (Auto) 6.6 (1-9) % Eos % (Auto) 0.5 (0-6) % Baso % (Auto) 0.6 (0-2) % Absolute Neuts (auto) 7.9 H (1.5-7.7) 10^3/ul Absolute Lymphs (auto) 1.2 (1.0-4.8) 10^3/ul Absolute Monos (auto) 0.6 (0-0.8) 10^3/ul Absolute Eos (auto) 0.1 (0-0.6) 10^3/ul Absolute Basos (auto) 0.1 (0-0.2) 10^3/ul Absolute Nucleated RBC 0 10^3/ul Nucleated RBC % 0 INR (Anticoag Therapy) (0.77-1.02) Sodium 132 L (133-145) mmol/L Potassium 3.6 (3.5-5.0) mmol/L Chloride 99 L (101-111) mmol/L Carbon Dioxide 25 (22-32) mmol/L Anion Gap 8 (2-11) mmol/L BUN 17 (6-24) mg/dL Creatinine 0.74 (0.51-0.95) mg/dL Est GFR ( Amer) 101.3 (>60) Est GFR (Non-Af Amer) 78.8 (>60) BUN/Creatinine Ratio 23.0 H (8-20) Glucose 133 H (70-100) mg/dL Lactic Acid (0.5-2.0) mmol/L Calcium 8.9 (8.6-10.3) mg/dL Total Bilirubin 0.80 (0.2-1.0) mg/dL AST 17 (13-39) U/L ALT 21 (7-52) U/L Alkaline Phosphatase 68 (34-104) U/L Troponin I 0.01 (<0.04) ng/mL B-Natriuretic Peptide 324 H ( - 100) pg/mL Total Protein 8.5 (6.4-8.9) g/dL Albumin 3.3 (3.2-5.2) g/dL Globulin 5.2 H (2-4) g/dL Albumin/Globulin Ratio 0.6 L (1-3) 03/02/17 03/02/17 Range/Units 11:48 11:48 WBC (3.5-10.8) 10^3/ul RBC (4.0-5.4) 10^6/ul Hgb (12.0-16.0) g/dl Hct (35-47) % MCV (80-97) fL MCH (27-31) pg MCHC (31-36) g/dl RDW (10.5-15) % Plt Count (150-450) 10^3/ul MPV (7.4-10.4) um3 Neut % (Auto) (38-83) % Lymph % (Auto) (25-47) % [place] % (Auto) (1-9) % Eos % (Auto) (0-6) % Baso % (Auto) (0-2) % Absolute Neuts (auto) (1.5-7.7) 10^3/ul Absolute Lymphs (auto) (1.0-4.8) 10^3/ul Absolute Monos (auto) (0-0.8) 10^3/ul Absolute Eos (auto) (0-0.6) 10^3/ul Absolute Basos (auto) (0-0.2) 10^3/ul Absolute Nucleated RBC 10^3/ul Nucleated RBC % INR (Anticoag Therapy) 1.16 H (0.77-1.02) Sodium (133-145) mmol/L Potassium (3.5-5.0) mmol/L Chloride (101-111) mmol/L Carbon Dioxide (22-32) mmol/L Anion Gap (2-11) mmol/L BUN (6-24) mg/dL Creatinine (0.51-0.95) mg/dL Est GFR ( Amer) (>60) Est GFR (Non-Af Amer) (>60) BUN/Creatinine Ratio (8-20) Glucose (70-100) mg/dL Lactic Acid 1.2 (0.5-2.0) mmol/L Calcium (8.6-10.3) mg/dL Total Bilirubin (0.2-1.0) mg/dL AST (13-39) U/L ALT (7-52) U/L Alkaline Phosphatase (34-104) U/L Troponin I (<0.04) ng/mL B-Natriuretic Peptide ( - 100) pg/mL Total Protein (6.4-8.9) g/dL Albumin (3.2-5.2) g/dL Globulin (2-4) g/dL Albumin/Globulin Ratio (1-3) Assess/Plan/Problems-Billing Assessment: Ms. Howell is a 66 y.o female with a history of DM, HTN, hyperlipidemia, depression, DON, insomnia and morbid obesity. Who presented to the emergency room with shortness of breath x several days. - Patient Problems (1) CHF (congestive heart failure) Current Visit: Yes Status: Acute Code(s): I50.9 - HEART FAILURE, UNSPECIFIED SNOMED Code(s): 29645017 Comment: continue lasix 40 mg IV x 1 today Will convert to lasix 20 mg po tomorrow and add potassium 20 meq (2) Hypertension Current Visit: Yes Status: Acute Code(s): I10 - ESSENTIAL (PRIMARY) HYPERTENSION SNOMED Code(s): 76036616 Comment: continue home medications-stable (3) Diabetes Current Visit: Yes Status: Acute Code(s): E11.9 - TYPE 2 DIABETES MELLITUS WITHOUT COMPLICATIONS SNOMED Code(s): 21317492 Comment: Accu checks Humalog Insulin 70/30 Status and Disposition: Feeling better today, continue to have shortness of breath with exertion, will discharge home tomorrow with PO lasix and potassium.
[2017-03-05] MEDS: Heparin VIAL(*) 5000 UNITS/ML VIAL (FIVE THOUSAND) SUBCUT SCH (05:31)
[2017-03-05] MEDS: Insulin LISPRO* 1 UNITS UNIT SUBCUT SCH ×2 (07:27→11:14)
[2017-03-05] MEDS: Acetaminophen TAB* 325 MG PO PRN (07:40)
[2017-03-05] MEDS: Metoprolol Succinate XL TAB* 25 MG PO SCH (09:13)
[2017-03-05] MEDS: Nystatin SUSPENSION* 100000 UNITS/ML 5 ML UDC PO SCH ×2 (09:13→13:12)
[2017-03-05] MEDS: buPROPion SR TAB.SR* 100 MG PO SCH (09:13)
[2017-03-05] MEDS: Insulin ISOPH/REG 70/30 (*) 1 UNITS UNIT SUBCUT SCH (09:13)
[2017-03-05] MEDS: CMCS: Pravastatin (NF) 20 MG TAB PO SCH (09:13)
[2017-03-05] MEDS: amLODIPine TAB* 5 MG PO SCH (09:13)
[2017-03-05 10:56] LABS: ABS Basophils 0.1 10^3/ul (0-0.2); ABS Eosinophils 0.3 10^3/ul (0-0.6); ABS Lymphocytes 1.9 10^3/ul (1.0-4.8); ABS Monocytes 0.7 10^3/ul (0-0.8); ABS Neutrophils 5.2 10^3/ul (1.5-7.7); ABS Nucleated RBC 0 10^3/ul; Eosinophil % 3.4 % (0-6); Hematocrit 31 % (35-47); Hemoglobin 9.9 g/dl (12.0-16.0); Lymphocyte % 23.6 % (25-47); Mean Corpuscular HGB Conc 32 g/dl (31-36); Mean Corpuscular Hemoglobin 27 pg (27-31); Mean Corpuscular Volume 84 fL (80-97); Mean Platelet Volume 8 um3 (7.4-10.4); Nucleated Red Blood Cells % 0.1; Platelet Count 261 10^3/ul (150-450); Red Blood Count 3.67 10^6/ul (4.0-5.4); Red Cell Distribution Width 17 % (10.5-15); White Blood Count 8.1 10^3/ul (3.5-10.8)
[2017-03-05 12:02] VITALS: BP 179/92
--- NOTE | 2017-03-06 14:55 | PN ---
Subjective Date of Service: 03/05/17 Interval History: Patient states that she is feeling much better today, reports that her breathing has improved. Denies chest pain or shortness of breath. Denies abd pain. Denies N/V/D. Family History: Unchanged from Admission Social History: Unchanged from Admission Past Medical History: Unchanged from Admission Objective Oxygen Devices in Use Now: Nasal Cannula Appearance: Appears comfortable sitting in the chair , no respiratory distress. obese Ears/Nose/Mouth/Throat: Clear Oropharnyx, Mucous Membranes Moist Neck: NL Appearance and Movements; NL JVP, Trachea Midline Respiratory: Symmetrical Chest Expansion and Respiratory Effort, Clear to Auscultation Cardiovascular: NL Sounds; No Murmurs; No JVD, RRR, No Edema Abdominal: NL Sounds; No Tenderness; No Distention Extremities: No Clubbing, Cyanosis, - - Lower legs with edema Neurological: Alert and Oriented x 3 Nutrition: Taking PO's Result Diagrams: 03/05/17 10:46 03/05/17 10:46 Additional Lab and Data: Lab Results 03/02/17 03/02/17 03/02/17 Range/Units 11:48 11:48 11:48 WBC 9.8 (3.5-10.8) 10^3/ul RBC 3.38 L (4.0-5.4) 10^6/ul Hgb 9.0 L (12.0-16.0) g/dl Hct 28 L (35-47) % MCV 81 (80-97) fL MCH 27 (27-31) pg MCHC 33 (31-36) g/dl RDW 17 H (10.5-15) % Plt Count 200 (150-450) 10^3/ul MPV 8 (7.4-10.4) um3 Neut % (Auto) 80.3 (38-83) % Lymph % (Auto) 12.0 L (25-47) % [place] % (Auto) 6.6 (1-9) % Eos % (Auto) 0.5 (0-6) % Baso % (Auto) 0.6 (0-2) % Absolute Neuts (auto) 7.9 H (1.5-7.7) 10^3/ul Absolute Lymphs (auto) 1.2 (1.0-4.8) 10^3/ul Absolute Monos (auto) 0.6 (0-0.8) 10^3/ul Absolute Eos (auto) 0.1 (0-0.6) 10^3/ul Absolute Basos (auto) 0.1 (0-0.2) 10^3/ul Absolute Nucleated RBC 0 10^3/ul Nucleated RBC % 0 INR (Anticoag Therapy) (0.77-1.02) Sodium 132 L (133-145) mmol/L Potassium 3.6 (3.5-5.0) mmol/L Chloride 99 L (101-111) mmol/L Carbon Dioxide 25 (22-32) mmol/L Anion Gap 8 (2-11) mmol/L BUN 17 (6-24) mg/dL Creatinine 0.74 (0.51-0.95) mg/dL Est GFR ( Amer) 101.3 (>60) Est GFR (Non-Af Amer) 78.8 (>60) BUN/Creatinine Ratio 23.0 H (8-20) Glucose 133 H (70-100) mg/dL Lactic Acid (0.5-2.0) mmol/L Calcium 8.9 (8.6-10.3) mg/dL Total Bilirubin 0.80 (0.2-1.0) mg/dL AST 17 (13-39) U/L ALT 21 (7-52) U/L Alkaline Phosphatase 68 (34-104) U/L Troponin I 0.01 (<0.04) ng/mL B-Natriuretic Peptide 324 H ( - 100) pg/mL Total Protein 8.5 (6.4-8.9) g/dL Albumin 3.3 (3.2-5.2) g/dL Globulin 5.2 H (2-4) g/dL Albumin/Globulin Ratio 0.6 L (1-3) 03/02/17 03/02/17 Range/Units 11:48 11:48 WBC (3.5-10.8) 10^3/ul RBC (4.0-5.4) 10^6/ul Hgb (12.0-16.0) g/dl Hct (35-47) % MCV (80-97) fL MCH (27-31) pg MCHC (31-36) g/dl RDW (10.5-15) % Plt Count (150-450) 10^3/ul MPV (7.4-10.4) um3 Neut % (Auto) (38-83) % Lymph % (Auto) (25-47) % [place] % (Auto) (1-9) % Eos % (Auto) (0-6) % Baso % (Auto) (0-2) % Absolute Neuts (auto) (1.5-7.7) 10^3/ul Absolute Lymphs (auto) (1.0-4.8) 10^3/ul Absolute Monos (auto) (0-0.8) 10^3/ul Absolute Eos (auto) (0-0.6) 10^3/ul Absolute Basos (auto) (0-0.2) 10^3/ul Absolute Nucleated RBC 10^3/ul Nucleated RBC % INR (Anticoag Therapy) 1.16 H (0.77-1.02) Sodium (133-145) mmol/L Potassium (3.5-5.0) mmol/L Chloride (101-111) mmol/L Carbon Dioxide (22-32) mmol/L Anion Gap (2-11) mmol/L BUN (6-24) mg/dL Creatinine (0.51-0.95) mg/dL Est GFR ( Amer) (>60) Est GFR (Non-Af Amer) (>60) BUN/Creatinine Ratio (8-20) Glucose (70-100) mg/dL Lactic Acid 1.2 (0.5-2.0) mmol/L Calcium (8.6-10.3) mg/dL Total Bilirubin (0.2-1.0) mg/dL AST (13-39) U/L ALT (7-52) U/L Alkaline Phosphatase (34-104) U/L Troponin I (<0.04) ng/mL B-Natriuretic Peptide ( - 100) pg/mL Total Protein (6.4-8.9) g/dL Albumin (3.2-5.2) g/dL Globulin (2-4) g/dL Albumin/Globulin Ratio (1-3) Assess/Plan/Problems-Billing Assessment: Ms. Howell is a 66 y.o female with a history of DM, HTN, hyperlipidemia, depression, DON, insomnia and morbid obesity. Who presented to the emergency room with shortness of breath x several days. improved will discharge home today. - Patient Problems (1) CHF (congestive heart failure) Status: Acute Code(s): I50.9 - HEART FAILURE, UNSPECIFIED SNOMED Code(s): 73352948 Comment: Suspect that her shortness of breath is related to diastolic heart failure echo was completed and showed EF 60-65% - Left ventricular filling with pseudonormalization. continue lasix 40 mg IV x 1 today Will convert to lasix 20 mg po today and add potassium 20 meq (2) Hypertension Status: Acute Code(s): I10 - ESSENTIAL (PRIMARY) HYPERTENSION SNOMED Code(s) : 96986670 Comment: continue home medications-stable (3) Diabetes Status: Acute Code(s): E11.9 - TYPE 2 DIABETES MELLITUS WITHOUT COMPLICATIONS SNOMED Code(s): 85609051 Comment: Accu checks Humalog Insulin 70/30 Status and Disposition: Feeling better today, mild shortness of breath with exertion,improved will discharge home today with PO lasix and potassium. Weigh yourself daily, call your doctor with a 3 pound weight gain in 24 hours return to the emergency room with increased shortness of breath or chest pain
--- NOTE | 2017-03-08 11:34 | DS ---
DISCHARGE SUMMARY: DATE OF ADMISSION: 03/02/17 DATE OF DISCHARGE: 03/05/17 ATTENDING PHYSICIAN: Dr. Jocelyn Badillo * (dictated by Blanka Khan, SARAH). PRIMARY CARE PROVIDER: Dr. Cr Wade. PRIMARY DIAGNOSES: 1. Shortness of breath. 2. Congestive heart failure. 3. Hyponatremia. 4. Anemia. 5. Oral thrush. SECONDARY DIAGNOSES: 1. Type 2 diabetes. 2. Hypertension. 3. Hypercholesterolemia. 4. Obstructive sleep apnea, uses CPAP. 5. Depression. 6. Insomnia. 7. Chronic lymphedema with right posterior calf nonhealing wound. 8. Chronic fatigue. 9. Morbid obesity. 10. History of endometriosis, status post hysterectomy in 2009. STUDIES WHILE IN THE HOSPITAL: She had a chest x-ray on 03/02/17. Radiologist' s impression: Constellation of findings is most consistent with pulmonary vascular congestion and interstitial edema. She had an electrocardiogram on 03/02/17, which showed sinus rhythm at rate of 63. She had transthoracic echocardiogram on 03/02/17. Conclusion of this exam showed the study was technically suboptimal due to the patient's body habitus, mild-to- moderate concentric left ventricular hypertrophy is observed. The left ventricle appears hyperdynamic. The estimated ejection fraction is 60% to 65%. There is septal flattening in the interventricular septum consistent with right ventricular volume or pressure overload. The left ventricular diastolic filling pattern is consistent with pseudonormalization. The left atrium is mildly dilated. The right ventricle is slightly dilated. The right ventricle global systolic function is mildly reduced. The mitral valve leaflets are mildly thickened. There is a trace of mitral regurg. There is borderline mitral stenosis. There is trace mild tricuspid regurgitation and unable to estimate the right ventricular systolic pressure. DISCHARGE MEDICATIONS: The patient will be placed on: 1. Lasix 20 mg p.o. daily. 2. Potassium 20 mEq p.o. daily. 3. She will also be placed on nystatin suspension 500,000 units p.o. four times a day. Continued home medications, she will continue: 1. Insulin 70/30, 35 units subcu b.i.d. 2. Valsartan/hydrochlorothiazide 320/25 one tablet p.o. daily. 3. Metoprolol succinate XL 25 mg p.o. daily. 4. Trazodone 100 mg p.o. at bedtime as needed. 5. Naproxen 500 mg p.o. q.12 hours p.r.n. 6. Wellbutrin SR 100 mg p.o. daily. 7. Metformin 1000 mg p.o. b.i.d. 8. Amlodipine 10 mg p.o. daily. 9. Pravastatin 10 mg p.o. daily. 10. Acetaminophen 650 mg q.4 hours as needed for pain. HISTORY OF PRESENT ILLNESS AND HOSPITAL COURSE: Ms. Howell is a 66-year-old female, who presented to the emergency room with a chief complaint of difficulty breathing. She is not a strong historian, but states that her shortness of breath started several days ago. She notes that she has been having more difficulty breathing at both rest and especially with exertion and that it takes her quite a bit of time to recover from the shortness of breath after she moves around. She also reports that she has been having difficulty sleeping at night and often sits up or sits on the side of the bed to catch her breath. She denies any cough or flu-like symptoms. Denies fever or chills. Denied any chest pain, neck pain, or palpitations. She denies any abdominal pain, nausea, vomiting, diarrhea, or dysuria. She denies any weakness. She denies any known history of any heart failure. While in the emergency room, the patient received 40 mg of Lasix and reported improvement in her breathing. When inquired about her diet, she states that she typically stick to a low-salt diet and low sugar for her diabetes and heart. However, this past week, when it was cold, she was ordering out and was ordering pizza and sandwiches from [employer]. She also had a salad where she was adding rooney bits to her salad. She states that she does also have pain in her mouth. She states that she has thrush in her mouth which she has gotten before and thinks it is secondary to eating gluten, which normally she does not eat. While in the emergency room, she had a chest x-ray, which was consistent with pulmonary vascular congestion and interstitial edema. While in the hospital, she was placed on telemetry monitoring and monitored throughout her stay. IV Lasix was continued. She had routine lab work repeated daily. On 03/05/17, her WBCs were 8.1, RBCs 3.67, hemoglobin was 9.9, hematocrit was 31, her platelet count was 261. Her potassium level on 03/03/17 was 3.2. On 03/05/17, it was 3.8. She did receive potassium supplementation to correct her hypokalemia. Her blood sugars ran from 95 to 159 throughout her stay. Her magnesium level initially was 1.7, she was corrected to 2.3 on . Her BNP on 03/02/17 was 324. On 03/05/17, Ms. Howell said that she was feeling much better. Her breathing had improved. She was not as short of breath with exertion. She feels that the swelling has decreased in her hands and feet. She does continue to have swelling in bilateral lower legs with discoloration noted to bilateral lower legs. Ms. Howell is stable for discharge home today. PHYSICAL EXAMINATION: Vital Signs: Are as follows, temp was 97.9 orally; heart rate was 57; respiratory rate was 18; O2 saturation was 94% on room air; blood pressure was 179/92, previously it was 149/68 on 03/05/17 at 8:04. DISCHARGE PLAN: Ms. Howell will be discharged back home today. ACTIVITY: As tolerated. DIET: She should continue a low-sodium, heart-healthy diet. She also should continue a low-sugar, diabetic diet. In regards to her heart failure, she will need to do daily weights and report an increase weight gain of 2 to 3 pounds to her primary care physician. This was reviewed with Ms. Howell during her instructions for discharge. I will place her on Lasix 20 mg p.o. daily and potassium 20 mEq p.o. daily. She will also continue nystatin for a total of 7 days 500,000 units four times daily. She will follow up with her primary care physician, Dr. Wade, in 4 to 7 days. The patient was instructed to return to the emergency room for any increased shortness of breath or chest pain. Ms. Howell will also be sent home on home oxygen 2 L as needed for the shortness of breath. This is a summarized report of her medical stay and hospitalization. For further details, please see the entire medical record. TIME SPENT: Time spent on this discharge was approximately 60 minutes, greater than half the time was spent with the patient discussing her discharge plans and instructions. CONDITION ON DISCHARGE: Stable. BLANKA KHAN, LAND MANAGEMENT SUPERVISOR [id number]/[facility] #: [id number] [facility]
== END 2017-03-05 14:35 | disposition home health service (06) | DRG 292 ==
LOC: ED 10:39 → MEDTELE 14:36 → OBSVTOIN 03-03 11:00
PROVIDERS: ADMIT Hospitalist; ATTEND Internal Medicine
DX: I11.0 Hypertensive heart disease with heart failure (principal); B37.0 Candidal stomatitis; I50.9 Heart failure, unspecified; E66.01 Morbid (severe) obesity due to excess calories; E87.1 Hypo-osmolality and hyponatremia; I08.1 Rheumatic disorders of both mitral and tricuspid valves; E11.9 Type 2 diabetes mellitus without complications; G47.33 Obstructive sleep apnea (adult) (pediatric); I89.0 Lymphedema, not elsewhere classified; F32.9 Major depressive disorder, single episode, unspecified; G47.00 Insomnia, unspecified; E78.5 Hyperlipidemia, unspecified; D64.9 Anemia, unspecified; R53.82 Chronic fatigue, unspecified; E87.6 Hypokalemia; Z90.710 Acquired absence of both cervix and uterus; Z87.891 Personal history of nicotine dependence; Z68.43 Body mass index [BMI] 50.0-59.9, adult; Z99.81 Dependence on supplemental oxygen; Z83.3 Family history of diabetes mellitus; Z88.8 Allergy status to other drugs, medicaments and biological substances; Z72.89 Other problems related to lifestyle; Z79.4 Long term (current) use of insulin
CPT/HCPCS: 36415; 71045; 80048; 80053; 81003; 81015; 83036; 83605; 83735; 83880; 84484; 85025; 85610; 87040; 93005; 93306; 94760; 99284; A9270-GY; C8929; G0378; J1644; J1940; J3475

== ENCOUNTER 2021-10-09 11:49 | Inpatient (IN) ==
[2021-10-09 13:09] LABS: ABS Eosinophils 0.1 10^3/ul (0-0.6); ABS Lymphocytes 0.8 10^3/ul (1.0-4.8); ABS Monocytes 0.5 10^3/ul (0-0.8); ABS Neutrophils 4.5 10^3/ul (1.5-7.7); Eosinophil % 2.2 %; Hematocrit 27 % (35-47); Hemoglobin 8.5 g/dL (12.0-16.0); Lymphocyte % 13.7 %; Mean Corpuscular HGB Conc 32 g/dL (31-36); Mean Corpuscular Hemoglobin 28 pg (27-31); Mean Corpuscular Volume 86 fL (80-97); Mean Platelet Volume 6.7 fL (7.4-10.4); Platelet Count 246 10^3/uL (150-450); Red Blood Count 3.08 10^6 /uL (3.70-4.87); Red Cell Distribution Width 17 % (10-15)
[2021-10-09 13:55] LABS: Albumin/Globulin Ratio 0.5 (1-3); C Reactive Protein 85.67 mg/L (<8.01); Calcium 8.6 mg/dL (8.6-10.3); Globulin 5.5 g/dL (2-4); Total Bilirubin 0.3 mg/dL (0.2-1.0); Total Protein 8.5 g/dL (6.4-8.9); eGFR CKD-EPI 65.3 (>60)
[2021-10-09] MEDS ORDERED: Piperacillin/Tazobac ADVAN 3.375 GM in NS 0.9% 100 ml BAG 100 ML IV ONE (14:12)
[2021-10-09 14:31] LABS: Activated Partial Thrombo Time 33.8 seconds (26.0-38.0); INR 1.27 (0.89-1.11)
[2021-10-09 14:33] LABS: Hepatitis C Antibody Negative (Negative)
[2021-10-09] MEDS ORDERED: Piperacillin/Tazobac 3.375 GM BAG ONE (15:51)
[2021-10-09] MEDS ORDERED: Dextrose 50% Syringe 50 ml 25 GM/50 ML SYRINGE IV PUSH PRN (15:53)
[2021-10-09] MEDS ORDERED: guaiFENesin 100 mg/5 ml LIQ unit dose cup PO PRN (15:53)
[2021-10-09] MEDS ORDERED: Calcium Carb (TUMS) 500 mg CHEW TAB PO PRN (15:53)
[2021-10-09] MEDS ORDERED: Magnesium Hydroxide LIQ 30 ML UDC PO PRN (15:53)
[2021-10-09] MEDS ORDERED: Lisinopril/HCTZ 10/12.5 TA(NF) PO SCH (16:00)
[2021-10-09] MEDS ORDERED: Zosyn per Pharmacy NOTE FOLLOW UP SCH (16:00)
[2021-10-09] MEDS ORDERED: Vancomycin per Pharmacy 1 EA NOTE FOLLOW UP SCH (16:00)
[2021-10-09] MEDS ORDERED: Vancomycin 2,000 MG in NS 0.9% 500 ml BAG 500 ML IVPB ONE (17:00)
[2021-10-09 17:51] LABS: Ferritin 65.2 ng/mL (11-307)
[2021-10-09 18:06] LABS: HDL Cholesterol 27.4 mg/dL
[2021-10-09] MEDS: Enoxaparin 40 MG/0.4 ML SYR SUBCUT SCH (18:51)
[2021-10-09] MEDS: Aspirin EC 81 mg TAB.EC (enteric coated) PO SCH (18:52)
[2021-10-09] MEDS ORDERED: ZOSYN 3.375 GM Q8H per EXTENDED INFUSION IV SCH (20:00)
[2021-10-09] MEDS: HYDROcodone/ACETAMIN 5/325 mg TAB PO PRN (21:53)
[2021-10-09] MEDS: Insulin GLARGINE 100 un/ml 10 ml VIAL SUBCUT SCH (21:55)
[2021-10-10] MEDS: TOLTERODINE 2 MG PO SCH ×2 (02:51→09:46)
[2021-10-10] MEDS: ZOSYN 3.375 GM Q8H per EXTENDED INFUSION IV SCH ×2 (06:21→15:53)
[2021-10-10 06:52] LABS: ABS Eosinophils 0.1 10^3/ul (0-0.6); ABS Lymphocytes 0.8 10^3/ul (1.0-4.8); ABS Monocytes 0.5 10^3/ul (0-0.8); Eosinophil % 1.7 %; Hematocrit 26 % (35-47); Hemoglobin 8.5 g/dL (12.0-16.0); Lymphocyte % 11.8 %; Mean Corpuscular HGB Conc 33 g/dL (31-36); Mean Corpuscular Hemoglobin 28 pg (27-31); Mean Corpuscular Volume 86 fL (80-97); Platelet Count 234 10^3/uL (150-450); Red Blood Count 3.02 10^6 /uL (3.70-4.87); Red Cell Distribution Width 17 % (10-15); White Blood Count 6.4 10^3/uL (3.5-10.8)
[2021-10-10 07:09] LABS: Albumin 2.9 g/dL (3.2-5.2); Albumin/Globulin Ratio 0.6 (1-3); Calcium 8.2 mg/dL (8.6-10.3); Potassium 4.2 mmol/L (3.5-5.0); Total Bilirubin 0.4 mg/dL (0.2-1.0); Total Protein 7.9 g/dL (6.4-8.9); eGFR CKD-EPI 71.6 (>60)
[2021-10-10] MEDS ORDERED: PTO: Dulaglutide (NF) 1.5 MG/0.5 ML SYRINGE SUBCUT SCH (09:00)
[2021-10-10] MEDS: Aspirin EC 81 mg TAB.EC (enteric coated) PO SCH (09:45)
[2021-10-10] MEDS: HYDROcodone/ACETAMIN 5/325 mg TAB PO PRN ×2 (09:45→17:34)
[2021-10-10] MEDS: Nystatin TOP POWDER 15 GM BTL TOPICAL SCH ×2 (09:59→22:56)
[2021-10-10] MEDS: CMCS: Ketoconazole 2 % CREAM (NF) 30 GM TUBE TOPICAL SCH (09:59)
[2021-10-10] MEDS ORDERED: Vancomycin 2,000 MG in NS 0.9% 500 ml BAG 500 ML IVPB SCH ×3 (12:00→23:00)
[2021-10-10] MEDS ORDERED: Perflutren Lipid Microsphere 3 ML VIAL ONE (15:10)
[2021-10-10] MEDS: Enoxaparin 40 MG/0.4 ML SYR SUBCUT SCH (15:53)
[2021-10-10] MEDS: Insulin GLARGINE 100 un/ml 10 ml VIAL SUBCUT SCH (23:57)
[2021-10-11] MEDS: ZOSYN 3.375 GM Q8H per EXTENDED INFUSION IV SCH ×4 (01:12→18:08)
[2021-10-11 06:03] LABS: ABS Eosinophils 0.2 10^3/ul (0-0.6); ABS Lymphocytes 0.9 10^3/ul (1.0-4.8); ABS Monocytes 0.5 10^3/ul (0-0.8); ABS Neutrophils 3.9 10^3/ul (1.5-7.7); Hematocrit 27 % (35-47); Hemoglobin 8.6 g/dL (12.0-16.0); Lymphocyte % 16.8 %; Mean Corpuscular HGB Conc 32 g/dL (31-36); Mean Corpuscular Hemoglobin 27 pg (27-31); Mean Corpuscular Volume 86 fL (80-97); Mean Platelet Volume 7.1 fL (7.4-10.4); Nucleated Red Blood Cells % 0.1; Platelet Count 233 10^3/uL (150-450); Red Blood Count 3.18 10^6 /uL (3.70-4.87); Red Cell Distribution Width 17 % (10-15); White Blood Count 5.6 10^3/uL (3.5-10.8)
[2021-10-11 06:32] LABS: Calcium 8.2 mg/dL (8.6-10.3); Potassium 3.9 mmol/L (3.5-5.0); eGFR CKD-EPI 64.5 (>60)
[2021-10-11] MEDS: Aspirin EC 81 mg TAB.EC (enteric coated) PO SCH (08:35)
[2021-10-11] MEDS: CMCS: Ketoconazole 2 % CREAM (NF) 30 GM TUBE TOPICAL SCH (08:37)
[2021-10-11] MEDS: Nystatin TOP POWDER 15 GM BTL TOPICAL SCH ×2 (08:37→23:45)
[2021-10-11] MEDS: TOLTERODINE 2 MG PO SCH (08:38)
[2021-10-11] MEDS: HYDROcodone/ACETAMIN 5/325 mg TAB PO PRN ×3 (08:40→22:09)
[2021-10-11] MEDS ORDERED: Dextrose 50% Syringe 50 ml 25 GM/50 ML SYRINGE IV PUSH PRN (14:45)
[2021-10-11] MEDS: Enoxaparin 40 MG/0.4 ML SYR SUBCUT SCH (15:09)
[2021-10-12] MEDS: ZOSYN 3.375 GM Q8H per EXTENDED INFUSION IV SCH ×2 (01:10→08:21)
[2021-10-12 05:58] LABS: ABS Eosinophils 0.2 10^3/ul (0-0.6); ABS Lymphocytes 0.9 10^3/ul (1.0-4.8); ABS Monocytes 0.5 10^3/ul (0-0.8); ABS Neutrophils 3.4 10^3/ul (1.5-7.7); Eosinophil % 4.2 %; Hematocrit 27 % (35-47); Hemoglobin 8.8 g/dL (12.0-16.0); Lymphocyte % 18.4 %; Mean Corpuscular HGB Conc 32 g/dL (31-36); Mean Corpuscular Hemoglobin 28 pg (27-31); Mean Corpuscular Volume 86 fL (80-97); Nucleated Red Blood Cells % 0.1; Platelet Count 233 10^3/uL (150-450); Red Blood Count 3.19 10^6 /uL (3.70-4.87); Red Cell Distribution Width 17 % (10-15); White Blood Count 5.1 10^3/uL (3.5-10.8)
[2021-10-12 06:21] LABS: Calcium 8.5 mg/dL (8.6-10.3); Potassium 3.9 mmol/L (3.5-5.0); eGFR CKD-EPI 60.6 (>60)
[2021-10-12 06:50] LABS: C Reactive Protein 59.41 mg/L (<8.01)
[2021-10-12] MEDS: Aspirin EC 81 mg TAB.EC (enteric coated) PO SCH (08:22)
[2021-10-12] MEDS: TOLTERODINE 2 MG PO SCH (08:25)
[2021-10-12] MEDS: Nystatin TOP POWDER 15 GM BTL TOPICAL SCH ×2 (08:25→21:44)
[2021-10-12] MEDS: CMCS: Ketoconazole 2 % CREAM (NF) 30 GM TUBE TOPICAL SCH (08:25)
[2021-10-12] MEDS ORDERED: Amoxicillin/Clavul 875/125 TAB (Augmentin 875 tab) PO SCH (12:00)
[2021-10-12] MEDS: Enoxaparin 40 MG/0.4 ML SYR SUBCUT SCH (16:17)
[2021-10-12] MEDS: Pravastatin 20 mg TAB (NF) PO SCH (21:37)
[2021-10-12] MEDS: HYDROcodone/ACETAMIN 5/325 mg TAB PO PRN (21:41)
[2021-10-12] MEDS ORDERED: Vancomycin Trough Check NOTE FOLLOW UP ONE ×2 (22:30)
[2021-10-13 06:16] LABS: ABS Eosinophils 0.2 10^3/ul (0-0.6); ABS Monocytes 0.4 10^3/ul (0-0.8); ABS Neutrophils 2.9 10^3/ul (1.5-7.7); Eosinophil % 3.9 %; Hematocrit 31 % (35-47); Hemoglobin 9.6 g/dL (12.0-16.0); Mean Corpuscular HGB Conc 31 g/dL (31-36); Mean Corpuscular Hemoglobin 27 pg (27-31); Mean Corpuscular Volume 87 fL (80-97); Mean Platelet Volume 6.7 fL (7.4-10.4); Nucleated Red Blood Cells % 0.1; Platelet Count 234 10^3/uL (150-450); Red Blood Count 3.53 10^6 /uL (3.70-4.87); Red Cell Distribution Width 17 % (10-15); White Blood Count 4.5 10^3/uL (3.5-10.8)
[2021-10-13 06:32] LABS: Calcium 8.8 mg/dL (8.6-10.3); Potassium 3.9 mmol/L (3.5-5.0)
[2021-10-13 06:38] LABS: eGFR CKD-EPI 55.3 (>60)
[2021-10-13] MEDS: Aspirin EC 81 mg TAB.EC (enteric coated) PO SCH (08:16)
[2021-10-13] MEDS: Nystatin TOP POWDER 15 GM BTL TOPICAL SCH ×2 (08:20→20:48)
[2021-10-13] MEDS: CMCS: Ketoconazole 2 % CREAM (NF) 30 GM TUBE TOPICAL SCH (08:20)
[2021-10-13] MEDS: TOLTERODINE 2 MG PO SCH (08:21)
[2021-10-13] MEDS: Enoxaparin 40 MG/0.4 ML SYR SUBCUT SCH (16:34)
[2021-10-13] MEDS: HYDROcodone/ACETAMIN 5/325 mg TAB PO PRN (18:19)
[2021-10-13] MEDS: Pravastatin 20 mg TAB (NF) PO SCH (20:44)
[2021-10-14] MEDS: HYDROcodone/ACETAMIN 5/325 mg TAB PO PRN (06:25)
[2021-10-14] MEDS: Aspirin EC 81 mg TAB.EC (enteric coated) PO SCH (08:33)
[2021-10-14] MEDS: TOLTERODINE 2 MG PO SCH (08:36)
[2021-10-14] MEDS: Nystatin TOP POWDER 15 GM BTL TOPICAL SCH ×2 (08:36→19:59)
[2021-10-14] MEDS: CMCS: Ketoconazole 2 % CREAM (NF) 30 GM TUBE TOPICAL SCH (08:36)
[2021-10-14] MEDS: Enoxaparin 40 MG/0.4 ML SYR SUBCUT SCH (15:39)
[2021-10-14] MEDS: Pravastatin 20 mg TAB (NF) PO SCH (19:56)
[2021-10-15] MEDS: HYDROcodone/ACETAMIN 5/325 mg TAB PO PRN ×3 (03:38→23:46)
[2021-10-15] MEDS: CMCS: Ketoconazole 2 % CREAM (NF) 30 GM TUBE TOPICAL SCH (08:43)
[2021-10-15] MEDS: Aspirin EC 81 mg TAB.EC (enteric coated) PO SCH (08:43)
[2021-10-15] MEDS: Nystatin TOP POWDER 15 GM BTL TOPICAL SCH ×2 (08:50→19:52)
[2021-10-15] MEDS: TOLTERODINE 2 MG PO SCH (08:50)
[2021-10-15] MEDS: Enoxaparin 40 MG/0.4 ML SYR SUBCUT SCH (17:25)
[2021-10-15] MEDS: Pravastatin 20 mg TAB (NF) PO SCH (19:51)
[2021-10-15 23:25] VITALS: BP 126/70
[2021-10-16] MEDS: HYDROcodone/ACETAMIN 5/325 mg TAB PO PRN (08:34)
[2021-10-16] MEDS: Aspirin EC 81 mg TAB.EC (enteric coated) PO SCH (08:35)
[2021-10-16] MEDS: Nystatin TOP POWDER 15 GM BTL TOPICAL SCH (10:02)
[2021-10-16] MEDS: TOLTERODINE 2 MG PO SCH (10:03)
== END 2021-10-16 12:00 | DRG 638 ==
LOC: ED 11:49 → EDHOLD 15:36 → SUATTDRO 15:36 → MED 10-10 00:44
PROVIDERS: ADMIT Internal Medicine; ATTEND Internal Medicine